=== PATIENT | male | born 1995 | race Caucasian/White ===

== ENCOUNTER 2018-06-18 12:08 | Emergency (ER) | payer OTHER ==
[2018-06-18] MEDS ORDERED: Ciprofloxacin 500 MG TAB ONE (12:12)
== END 2018-06-18 12:28 | disposition home or self-care (01) ==
LOC: ER/OP 12:08
DX: Z20.811 Contact with and (suspected) exposure to meningococcus (principal)
CPT/HCPCS: 99281